=== PATIENT | male | born 1995 | race Caucasian/White ===

== ENCOUNTER 2020-09-11 12:21 | Inpatient (IN) ==
[2020-09-11] MEDS ORDERED: MoRPHine SULFATE 4 MG/ML 1 ML CARP\\VIAL IV STA (14:26)
[2020-09-11] MEDS ORDERED: SODIUM CHLORIDE 0.9% 1000ML 1,000 ML IV SCH (14:30)
[2020-09-11] MEDS: ONDANSETRON INJ 2 MG/ML 2 ML VIAL IV STA (15:37)
[2020-09-11 15:47] LABS: Basophils # (auto) 0.01 K/uL (0-0.2); Basophils % (auto) 0.1 %; Eosinophils # (auto) 0.06 K/uL (0-0.5); Eosinophils % (auto) 0.5 %; Hematocrit (blood only) 46.7 % (42-52); Hemoglobin 16.3 g/dL (14.0-18.0); Immature Granulocytes # (auto) 0.02 K/uL (0.00-0.02); Immature Granulocytes % (auto) 0.2 %; Lymphocytes # (auto) 0.78 K/uL (1.2-3.4); Lymphocytes % (auto) 6.1 %; Mean Corpuscular Hemoglobin 31.3 pg (25-34); Mean Corpuscular Hgb Conc 34.9 g/dL (32-36); Mean Corpuscular Volume 89.8 fL (80-100); Mean Platelet Volume 12.1 fL (7.4-10.4); Monocytes # (auto) 0.92 K/uL (0.11-0.59); Monocytes % (auto) 7.2 %; Neutrophils # (auto) 11.01 K/uL (1.4-6.5); Neutrophils % (auto) 85.9 %; Platelet Count 193 K/uL (130-400); RDW Coefficient of Variation 12.5 % (11.5-14.5); RDW Standard Deviation 41.1 fL (36.4-46.3)
[2020-09-11 16:06] LABS: Albumin Level 4.4 gm/dl (3.4-5.0); BUN Creatinine Ratio 10.5 (10-20); Calcium 9.1 mg/dl (8.5-10.1); Creatinine Clr Calc Pharmacy 151.5 ml/min; Est GFR (African American) 114.1 ml/min; Est GFR (Non-African American) 98.4 ml/min; Potassium 3.8 mmol/L (3.5-5.1)
[2020-09-11 16:09] LABS: Albumin Globulin Ratio 1.1 (0.9-2); Bilirubin,Total 1.1 mg/dl (0.2-1); Total Protein 8.4 gm/dl (6.4-8.2)
--- NOTE | 2020-09-11 16:21 | Emergency Department Note ---
History of Present Illness General Chief complaint: Abdominal Pain Stated complaint: ABDOMINAL PAIN Time Seen by Provider: 09/11/20 14:18 History of Present Illness Maximum Pain Intensity: 4 This is a 25-year-old male presenting to the emergency department for evaluation of left lower quadrant abdominal pain for the past 2 days. The patient states the discomfort is dull and increasing in discomfort. He rates the intensity of 5/10. There is no radiation of pain. He went to an urgent care clinic earlier this morning and was referred to the ER for further evaluation. He has not had fevers or chills. No chest pain, chest tightness, or shortness of breath. The patient is usually healthy and does not take medication on a regular basis. He has not had a history of abdominal surgery. Home Medications Medication Instructions Recorded Confirmed Type epinephrine 0.3 mg/0.3 mL 0.3 ml IM ONCE PRN 09/11/20 09/11/20 History injection, auto-injector Allergies Allergy/AdvReac Type Severity Reaction Status Date / Time peanut Allergy Severe Anaphylaxis Verified 09/11/20 14:56 Sulfa (Sulfonamide Allergy Intermediate Hives Verified 09/11/20 14:56 Antibiotics) Past Med/Surg History Medical History (Updated 09/11/20 @ 22:26 by Yoandy Lino PA-C) No chronic diseases present Surgical History (Updated 09/11/20 @ 16:26 by Yoandy Lino PA-C) No significant past surgical history Social History Feels Safe at Home: Yes Review of Systems A total of 10 systems reviewed and were otherwise negative Physical Exam Vital Signs Vital Signs - 24 hr 09/11/20 12:28 09/11/20 15:36 09/11/20 16:00 Temperature 37.0 C Temperature Source Temporal Artery Scan Pulse Rate 89 77 86 Pulse Rate from SpO2 Sensor 80 87 Respiratory Rate 18 17 Respiratory Effort / Characteristics Non-Labored Respiratory Depth Normal Respiratory Pattern Regular Blood Pressure 132/90 119/71 131/78 Blood Pressure Mean 104 87 95 Blood Pressure Position Sitting Pulse Oximetry 97 98 98 Oxygen Delivery Method Room Air Sepsis Recent Fever Within 48 Hours No Sepsis New/Unexplained Change in Mental Status No Sepsis Action Taken by Nursing No Action Required 09/11/20 16:30 09/11/20 17:35 09/11/20 18:00 Temperature Temperature Source Pulse Rate 79 94 H 78 Pulse Rate from SpO2 Sensor 80 78 Respiratory Rate 19 22 18 Respiratory Effort / Characteristics Respiratory Depth Respiratory Pattern Blood Pressure 126/63 146/72 H Blood Pressure Mean 84 96 Blood Pressure Position Pulse Oximetry 98 97 Oxygen Delivery Method Sepsis Recent Fever Within 48 Hours Sepsis New/Unexplained Change in Mental Status Sepsis Action Taken by Nursing 09/11/20 18:30 09/11/20 19:00 09/11/20 19:30 Temperature Temperature Source Pulse Rate 81 89 77 Pulse Rate from SpO2 Sensor 81 89 78 Respiratory Rate 20 23 21 Respiratory Effort / Characteristics Respiratory Depth Respiratory Pattern Blood Pressure 147/86 H 114/79 120/71 Blood Pressure Mean 106 90 87 Blood Pressure Position Pulse Oximetry 96 98 98 Oxygen Delivery Method Sepsis Recent Fever Within 48 Hours Sepsis New/Unexplained Change in Mental Status Sepsis Action Taken by Nursing 09/11/20 20:00 09/11/20 20:30 09/11/20 21:00 Temperature Temperature Source Pulse Rate 68 72 79 Pulse Rate from SpO2 Sensor 68 66 79 Respiratory Rate 21 22 22 Respiratory Effort / Characteristics Respiratory Depth Respiratory Pattern Blood Pressure 123/73 117/63 123/68 Blood Pressure Mean 89 81 86 Blood Pressure Position Pulse Oximetry 98 96 98 Oxygen Delivery Method Sepsis Recent Fever Within 48 Hours Sepsis New/Unexplained Change in Mental Status Sepsis Action Taken by Nursing 09/11/20 21:30 Temperature Temperature Source Pulse Rate 79 Pulse Rate from SpO2 Sensor 78 Respiratory Rate 22 Respiratory Effort / Characteristics Respiratory Depth Respiratory Pattern Blood Pressure 124/68 Blood Pressure Mean 86 Blood Pressure Position Pulse Oximetry 98 Oxygen Delivery Method Sepsis Recent Fever Within 48 Hours Sepsis New/Unexplained Change in Mental Status Sepsis Action Taken by Nursing VITALS: Vitals are noted on the nurse's note and reviewed by myself. Vital signs stable. GENERAL: Well-developed, well-nourished, white male, who is in no acute distress and resting comfortably. Patient is cooperative with the examination. HEAD: Normocephalic atraumatic. HEART: Regular rate and rhythm without murmurs gallops or rubs. LUNGS: Clear to auscultation bilaterally without wheezes, rales or rhonchi. No retractions or accessory muscle use. ABDOMEN: Positive normal bowel sounds x 4. Soft with left-sided tenderness. No rebound or guarding. MUSCULOSKELETAL: No muscle atrophy, erythema, or edema noted. Full range of motion in all extremities. NEURO: Patient was alert and oriented to person place and time. CN II through XII grossly intact. Course Administered Medications Discontinued Medications Sodium Chloride (Nss 1000ml) 1,000 mls @ 999 mls/hr IV .Q1H1M CHAD Stop: 09/11/20 15:30 Last Infusion: 09/11/20 16:44 Dose: 999 mls/hr Documented by: [id number] Admin: 09/11/20 15:37 Dose: 999 mls/hr Documented by: [id number] Piperacillin Sod/Tazobactam Sod (Zosyn) 4.5 gm in 120 mls @ 240 mls/hr IV NOW ONE Stop: 09/11/20 17:41 Last Infusion: 09/11/20 18:02 Dose: 240 mls/hr Documented by: [id number] Admin: 09/11/20 17:32 Dose: 240 mls/hr Documented by: [id number] Ioversol (Optiray 320 100ml) 91 ml IV ONCE ONE Stop: 09/11/20 16:47 Last Admin: 09/11/20 16:47 Dose: 91 ml Documented by: [id number] Morphine Sulfate (Morphine Sulfate 4 Mg/Ml 1 Ml Carp\Vial) 4 mg IV NOW STA Stop: 09/11/20 14:27 Last Admin: 09/11/20 15:38 Dose: 4 mg Documented by: [id number] Ondansetron HCl (Ondansetron Inj 2 Mg/Ml 2 Ml Vial) 4 mg IV NOW STA Stop: 09/11/20 14:27 Last Admin: 09/11/20 15:37 Dose: 4 mg Documented by: [id number] Medical Decision Making Differential Diagnosis Differential diagnosis: Etiologies such as biliary colic, cholecystitis, hepatitis, pancreatitis, cardia c disease, pancreatitis, gastritis, peptic ulcer disease, appendicitis, cystitis, diverticulitis, mesenteric ischemia, inflammatory bowel disease, ileus, bowel obstruction, testicular/adnexal torsion, aortic pathology, shingles, as well as others were considered Laboratory Data Result diagrams: 09/11/20 15:31 09/11/20 15:31 Lab Results 09/11/20 09/11/20 09/11/20 Range/Units 15:31 15:31 15:31 WBC 12.80 H (4.8-10.8) K/uL RBC 5.20 (4.7-6.1) M/uL Hgb 16.3 (14.0-18.0) g/dL Hct 46.7 (42-52) % MCV 89.8 (80-100) fL MCH 31.3 (25-34) pg MCHC 34.9 (32-36) g/dL RDW Std Deviation 41.1 (36.4-46.3) fL RDW Coeff of Itmo 12.5 (11.5-14.5) % Plt Count 193 (130-400) K/uL MPV 12.1 H (7.4-10.4) fL Immature Gran % (Auto) 0.2 % Neut % (Auto) 85.9 % Lymph % (Auto) 6.1 % [place] % (Auto) 7.2 % Eos % (Auto) 0.5 % Baso % (Auto) 0.1 % Neut # (Auto) 11.01 H (1.4-6.5) K/uL Lymph # (Auto) 0.78 L (1.2-3.4) K/uL [place] # (Auto) 0.92 H (0.11-0.59) K/uL Eos # (Auto) 0.06 (0-0.5) K/uL Baso # (Auto) 0.01 (0-0.2) K/uL Immature Gran # (Auto) 0.02 (0.00-0.02) K/uL Sodium 136 (136-145) mmol/L Potassium 3.8 (3.5-5.1) mmol/L Chloride 104 (98-107) mmol/L Carbon Dioxide 28 (21-32) mmol/L Anion Gap 4.0 (3-11) BUN 11 (7-18) mg/dl Creatinine 1.06 (0.6-1.4) mg/dl Est Cr Clr Drug Dosing 151.5 ml/min Est GFR ( Amer) 114.1 ml/min Est GFR (Non-Af Amer) 98.4 ml/min BUN/Creatinine Ratio 10.5 (10-20) Glucose 134 H (70-99) mg/dl Calcium 9.1 (8.5-10.1) mg/dl Total Bilirubin 1.1 H (0.2-1) mg/dl AST 14 L (15-37) U/L ALT 38 (12-78) U/L Alkaline Phosphatase 65 (45-117) U/L Total Protein 8.4 H (6.4-8.2) gm/dl Albumin 4.4 (3.4-5.0) gm/dl Globulin 4.0 (2.5-4.0) gm/dl Albumin/Globulin Ratio 1.1 (0.9-2) Lipase 56 L (73-393) U/L Urine Color Urine Appearance (Clear) Urine pH (4.5-7.5) Ur Specific [place] (1.000-1.030) Urine Protein (Negative) Urine Glucose (UA) (Negative) Urine Ketones (Negative) Urine Blood (Negative) Urine Nitrite (Negative) Urine Bilirubin (Negative) Urine Urobilinogen (Negative) Ur Leukocyte Esterase (Negative) Urine WBC (Auto) (0-5) /hpf Urine RBC (Auto) (0-4) /hpf U Hyaline Cast (Auto) (0-5) /lpf U Epithel Cells (Auto) (0-5) /lpf Urine Bacteria (Auto) (Negative) COVID-19 Eval Order SARS-CoV-2 (PCR) (Negative) Monoscreen Negative (Negative) 09/11/20 09/11/20 09/11/20 Range/Units 16:40 17:42 17:42 WBC (4.8-10.8) K/uL RBC (4.7-6.1) M/uL Hgb (14.0-18.0) g/dL Hct (42-52) % MCV (80-100) fL MCH (25-34) pg MCHC (32-36) g/dL RDW Std Deviation (36.4-46.3) fL RDW Coeff of Tim[place] (11.5-14.5) % Plt Count (130-400) K/uL MPV (7.4-10.4) fL Immature Gran % (Auto) % Neut % (Auto) % Lymph % (Auto) % [place] % (Auto) % Eos % (Auto) % Baso % (Auto) % Neut # (Auto) (1.4-6.5) K/uL Lymph # (Auto) (1.2-3.4) K/uL [place] # (Auto) (0.11-0.59) K/uL Eos # (Auto) (0-0.5) K/uL Baso # (Auto) (0-0.2) K/uL Immature Gran # (Auto) (0.00-0.02) K/uL Sodium (136-145) mmol/L Potassium (3.5-5.1) mmol/L Chloride (98-107) mmol/L Carbon Dioxide (21-32) mmol/L Anion Gap (3-11) BUN (7-18) mg/dl Creatinine (0.6-1.4) mg/dl Est Cr Clr Drug Dosing ml/min Est GFR ( Amer) ml/min Est GFR (Non-Af Amer) ml/min BUN/Creatinine Ratio (10-20) Glucose (70-99) mg/dl Calcium (8.5-10.1) mg/dl Total Bilirubin (0.2-1) mg/dl AST (15-37) U/L ALT (12-78) U/L Alkaline Phosphatase (45-117) U/L Total Protein (6.4-8.2) gm/dl Albumin (3.4-5.0) gm/dl Globulin (2.5-4.0) gm/dl Albumin/Globulin Ratio (0.9-2) Lipase (73-393) U/L Urine Color Yellow Urine Appearance Clear (Clear) Urine pH 6.0 (4.5-7.5) Ur Specific [place] 1.017 (1.000-1.030) Urine Protein Negative (Negative) Urine Glucose (UA) Negative (Negative) Urine Ketones Trace H (Negative) Urine Blood Trace H (Negative) Urine Nitrite Negative (Negative) Urine Bilirubin Negative (Negative) Urine Urobilinogen Negative (Negative) Ur Leukocyte Esterase Negative (Negative) Urine WBC (Auto) 1-5 (0-5) /hpf Urine RBC (Auto) 0-4 (0-4) /hpf U Hyaline Cast (Auto) 1-5 (0-5) /lpf U Epithel Cells (Auto) 0-5 (0-5) /lpf Urine Bacteria (Auto) Negative (Negative) COVID-19 Eval Order Covid19 at [facility] SARS-CoV-2 (PCR) NEGATIVE (Negative) Monoscreen (Negative) Imaging Data Radiologist's Impression: Abdomen/Pelvis CT 09/11/20 14:26 CT OF THE ABDOMEN AND PELVIS WITH CONTRAST CLINICAL HISTORY: LLQ abd pain COMPARISON STUDY: Left lower quadrant abdominal pain. TECHNIQUE: Following IV administration of 91 mL of Optiray, axial images of the abdomen and pelvis were obtained from the lung bases to the proximal femurs. Images were reviewed in the axial, sagittal, and coronal planes. IV contrast was administered without complication. Automated exposure control was utilized for the study. A dose lowering technique was utilized adhering to the principles of ALARA. Oral contrast was administered. CT DOSE: 721.76 mGy.cm FINDINGS: Lung bases are unremarkable. No pneumatosis or portal venous gas is present. The liver, spleen, adrenal glands, kidneys and pancreas are unremarkable. There is no biliary or pancreatic ductal dilatation. There is no hydronephrosis. Colonic diverticulosis is noted. Note is made of an inflamed diverticulum of the posterior wall of the mid descending colon. There are multiple adjacent locules of extraluminal gas. Moderate adjacent fluid is noted. There is no rim-enhancing fluid collection to suggest an abscess. The appendix is normal. There is no evidence for a bowel obstruction. There is no lymphadenopathy. Major vasculature is patent. IMPRESSION: Findings consistent with acute diverticulitis of the mid descending colon with contained perforation. Small amount of extraluminal gas with moderate pericolonic fluid. No abscess. ACT 112: Negative or not required by law. Electronically signed by: Reynaldo Nunez M.D. 09/11/2020 5:01 PM [facility] Narrative Physical exam and history were performed. Nursing notes, EMR, and Medication List were personally reviewed. Patient appears to have left-sided abdominal pain bringing him to the emergency department. He does have reproducible tenderness on exam. IV access was established and labs were obtained. He was hydrated with normal saline and given IV morphine and IV Zofran for comfort. He was taken to CT scan after IV and oral prep. Patient's blood work is as above and was reviewed. He does have a slightly elevated white blood cell count of just shy of 13,000. He does not have a significant anemia or gross electrolyte imbalance. Lipase and transaminases are not diagnostic. Urine is without significant findings. CT scan is as above and was reviewed by myself and radiology. CT scan is concerning for acute diverticulitis with likely microperforation. He does not appear to have abscess. The case was discussed with my attending physician, and then with the on-call general surgeon. The hospitalist team was consulted and did agree to evaluate the patient here in the ER. The patient was empirically started on Zosyn, and his questions were answered. Please see the hospitalist and surgical team dictations for further patient course, plan, and disposition. The chart was completed utilizing [employer] Speech Voice Recognition Software. Grammatical errors, random word insertions, pronoun errors, and incomplete sente nces are an occasional consequence of this system due to software limitations, ambient noise, and hardware issues. Any formal questions or concerns about the content, text, or information contained within the body of this dictation should be directly addressed to the provider for clarification. . Impression & Plan Diverticulitis large intestine, Left sided abdominal pain Discharge Plan Visit Data Chief Complaint: Abdominal Pain Stated Complaint: ABDOMINAL PAIN ED Provider: Feliciano Oliva ED Midlevel Provider: Yoandy Lino Discharge Problem: Diverticulitis large intestine, Left sided abdominal pain Discharge Instructions Interventions: ED Discharge Assessment Last Done: 09/11/20 22:12 Forms Stand Alone Forms: [employer] Prescriptions Prescriptions: No Action epinephrine 0.3 mg/0.3 mL auto-injector 0.3 ml IM ONCE PRN (Reason: Allergic Reaction) RF: 0 Referrals Referrals: [facility] [Primary Care Provider] -
[2020-09-11] MEDS ORDERED: OPTIRAY 320 100ml IV ONE (16:46)
--- NOTE | 2020-09-11 17:02 | CT Scan Report ---
CT OF THE ABDOMEN AND PELVIS WITH CONTRAST CLINICAL HISTORY: LLQ abd pain COMPARISON STUDY: Left lower quadrant abdominal pain. TECHNIQUE: Following IV administration of 91 mL of Optiray, axial images of the abdomen and pelvis we re obtained from the lung bases to the proximal femurs. Images were reviewed in the axial, sagittal, and coronal planes. IV contrast was administered without complication. Automated exposure control wa s utilized for the study. A dose lowering technique was utilized adhering to the principles of ALARA . Oral contrast was administered. CT DOSE: 721.76 mGy.cm FINDINGS: Lung bases are unremarkable. No pneumatosis or portal venous gas is present. The liver, spl een, adrenal glands, kidneys and pancreas are unremarkable. There is no biliary or pancreatic ductal dilatation. There is no hydronephrosis. Colonic diverticulosis is noted. Note is made of an inflamed diverticulum of the posterior wall of the mid descending colon. There are multiple adjacent locules o f extraluminal gas. Moderate adjacent fluid is noted. There is no rim-enhancing fluid collection to s uggest an abscess. The appendix is normal. There is no evidence for a bowel obstruction. There is no lymphadenopathy. Major vasculature is patent. IMPRESSION: Findings consistent with acute diverticulitis of the mid descending colon with contained perforation. Small amount of extraluminal gas with moderate pericolonic fluid. No abscess. ACT 112: Negative or not required by law. Electronically signed by: Reynaldo Nunez M.D. 09/11/2020 5:01 PM
[2020-09-11 17:09] LABS: Appearance Urine Clear (Clear); Bacteria Urine Automated Negative (Negative); Bilirubin Urine Negative (Negative); Blood Urine Trace (Negative); Color Urine Yellow; Epithelial Cell Urine Auto 0-5 /lpf (0-5); Glucose Urine UA Negative (Negative); Ketones Urine Trace (Negative); Leukocyte Esterase Urine Negative (Negative); Nitrite Urine Negative (Negative); Protein Urine Negative (Negative); RBC Urine Automated 0-4 /hpf (0-4); Specific Gravity Urine 1.017 (1.000-1.030); Urobilinogen Urine Negative (Negative)
[2020-09-11] MEDS ORDERED: PIPERACILLIN/TAZOBACTAM 4.5 GM/120 ML BAG IV ONE (17:12)
[2020-09-11] MEDS ORDERED: PIPERACILL/TAZOBAC CONSULT ACTIVE PRN ×2 (17:12→22:37)
--- NOTE | 2020-09-11 18:13 | Surgery Consultation ---
Date of Consultation September 11, 2020 Assessment & Plan (1) Diverticulitis large intestine: pt is a 25 year-old male who presents to ER with 2 days history LLQ pain, IMP: acute diverticulitis, possible micro perforation, Plan, no surgical indication now, recommend - medicine team admit pt to hospital , conservative treatment first, NPO, IV fluid, iv antibiotic, repeat labs in morning, will F/U, may need surgery if symptom is worse, pt understood, I answered all questions, History of Present Illness Reason for Consultation: abdominal pain Requesting Physician: Feliciano Oliva MD History of Present Illness Chief complaint: Abdominal Pain Stated complaint: ABDOMINAL PAIN Time Seen by Provider: 09/11/20 14:18 History of Present Illness Maximum Pain Intensity: 4 This is a 25-year-old male presenting to the emergency department for evaluation of left lower quadrant abdominal pain for the past 2 days. The patient states the discomfort is dull and increasing in discomfort. He rates the intensity of 5/10. There is no radiation of pain. He went to an urgent care clinic earlier this morning and was referred to the ER for further evaluation. He has not had fevers or chills. No chest pain, chest tightness, or shortness of breath. The patient is usually healthy and does not take medication on a regular basis. He has not had a history of abdominal surgery. I ( Madelyn Vasquez MD ) got a call for consult diverticulitis, I reviewed pts' H/P, labs, CT scan with pt, Home Medications Medication Instructions Recorded Confirmed Type epinephrine 0.3 mg/0.3 mL 0.3 ml IM ONCE PRN 09/11/20 09/11/20 History injection, auto-injector Allergies Allergy/AdvReac Type Severity Reaction Status Date / Time peanut Allergy Severe Anaphylaxis Verified 09/11/20 14:56 Sulfa (Sulfonamide Allergy Intermediate Hives Verified 09/11/20 14:56 Antibiotics) Past Med/Surg History Medical History (Updated 09/11/20 @ 16:26 by Yoandy Lino PA-C) No chronic diseases present Surgical History (Updated 09/11/20 @ 16:26 by Yoandy Lino PA-C) No significant past surgical history Social History Feels Safe at Home: Yes Review of Systems A total of 10 systems reviewed and were otherwise negative Allergies Allergy/AdvReac Type Severity Reaction Status Date / Time peanut Allergy Severe Anaphylaxis Verified 09/11/20 14:56 Sulfa (Sulfonamide Allergy Intermediate Hives Verified 09/11/20 14:56 Antibiotics) Home Medications Medication Instructions Recorded Confirmed Type epinephrine 0.3 mg/0.3 mL 0.3 ml IM ONCE PRN 09/11/20 09/11/20 History injection, auto-injector Patient History Medical History (Updated 09/11/20 @ 18:18 by Madelyn Vasquez MD) No chronic diseases present Surgical History (Updated 09/11/20 @ 16:26 by CECILIA TorresC) No significant past surgical history Social History Feels Safe at Home: Yes Review of Systems Eyes: as per Subjective / HPI Respiratory: as per Subjective / HPI Cardiovascular: as per Subjective / HPI Gastrointestinal: as per Subjective / HPI Genitourinary: + as per Subjective / HPI Musculoskeletal: as per Subjective / HPI Neurologic: as per Subjective / HPI Psychiatric: as per Subjective / HPI Endocrine: as per Subjective / HPI Physical Exam Constitutional: WD/WN, vitals as above Neck: trachea midline, no thyromegaly Respiratory: normal respiratory effort, lungs clear to auscultation Cardiovascular: RRR, no murmur, no edema Gastrointestinal (Abdomen): soft, mild tenderness at LLQ, no rebound pain, no distend, BS + Musculoskeletal: no cyanosis or clubbing, extremities motor strength 5/5 Neurologic: patellar DTR's 2+ bilat, sensation intact Psychiatric: A+Ox3, euthymic affect Results & Data ([facility]) Vital Signs (Past 12 Hours) Vital Signs Temp Pulse Resp BP Pulse Ox 09/11/20 17:35 94 H 22 09/11/20 16:30 79 19 126/63 98 09/11/20 16:00 86 131/78 98 09/11/20 15:36 77 17 119/71 98 09/11/20 12:28 37.0 C 89 18 132/90 97 Laboratory Results Abnormal lab results 09/11/20 09/11/20 09/11/20 Range/Units 15:31 15:31 16:40 WBC 12.80 H (4.8-10.8) K/uL MPV 12.1 H (7.4-10.4) fL Neut # (Auto) 11.01 H (1.4-6.5) K/uL Lymph # (Auto) 0.78 L (1.2-3.4) K/uL [place] # (Auto) 0.92 H (0.11-0.59) K/uL Glucose 134 H (70-99) mg/dl Total Bilirubin 1.1 H (0.2-1) mg/dl AST 14 L (15-37) U/L Total Protein 8.4 H (6.4-8.2) gm/dl Lipase 56 L (73-393) U/L Urine Ketones Trace H (Negative) Urine Blood Trace H (Negative) Diagnostic Findings CT OF THE ABDOMEN AND PELVIS WITH CONTRAST CLINICAL HISTORY: LLQ abd pain COMPARISON STUDY: Left lower quadrant abdominal pain. TECHNIQUE: Following IV administration of 91 mL of Optiray, axial images of the abdomen and pelvis were obtained from the lung bases to the proximal femurs. Images were reviewed in the axial, sagittal, and coronal planes. IV contrast was administered without complication. Automated exposure control was utilized for the study. A dose lowering technique was utilized adhering to the principles of ALARA. Oral contrast was administered. CT DOSE: 721.76 mGy.cm FINDINGS: Lung bases are unremarkable. No pneumatosis or portal venous gas is present. The liver, spleen, adrenal glands, kidneys and pancreas are unremarkable. There is no biliary or pancreatic ductal dilatation. There is no hydronephrosis. Colonic diverticulosis is noted. Note is made of an inflamed diverticulum of the posterior wall of the mid descending colon. There are multiple adjacent locules of extraluminal gas. Moderate adjacent fluid is noted. There is no rim-enhancing fluid collection to suggest an abscess. The appendix is normal. There is no evidence for a bowel obstruction. There is no lymphadenopathy. Major vasculature is patent. IMPRESSION: Findings consistent with acute diverticulitis of the mid descending colon with contained perforation. Small amount of extraluminal gas with moderate pericolonic fluid. No abscess.
--- NOTE | 2020-09-11 19:36 | History & Physical Report ---
Date of Service September 11, 2020 Assessment & Plan (1) Diverticulitis large intestine: Plan: Jose is an otherwise healthy 25 yo male who presented for left lower quadrant pain, found to have acute diverticulitis with a contained microperforation. - patient without any apparent risk factors - IV tylenol and IV morphine ordered prn for analgesia - NPO for bowel rest - maintenance IVF for hydration - continue with Zosyn 3.375g q6h. Plan to transition to cipro + flagyl oral regimen upon discharge, recommend total of 10-14 day antimicrobial course - general surgery consult placed given microperforation - consider GI consult vs. outpatient referral as patient may need a colonoscopy after acute flare resolves (2) Leukocytosis: Plan: - WBC 12.8 with neutrophil predom - likely secondary to acute diverticulitis as above - continue with IV zosyn - trend CBC DVT ppx: low risk, ambulatory. SCDs Diet: NPO, advance as tolerated. * patient with peanut allergy Dispo: Med/Surg Code: Full, I discussed with patient History of Present Illness Primary Care Provider: [facility] Jose is a 25 yo otherwise healthy male who was referred to the [facility] ED by a local [facility], where he presented earlier today with left abdominal pain. The pain began Thursday evening - it was mostly localized to the left lower quadrant. He denied any associated fever/chills, cough, runny nose, SOB, nausea/vomiting or diarrhea. He states his appetite has been low. He has passed normal BMs. The discomfort has slightly progressed since onset, which ultimatley prompted him to seek medical attention today. He denies any personal or family history of gastrointestinal problems. Social Hx: He smokes marijuana occasionally, social consumption of etoh (not regular). In the ED, he was afebrile with normal HR and BP. His WBC was elevated to 12.8 with neutrophil predominance. CMP was normal. UA was benign. Monospot negative. COVID [address] scan of the abdomen/pelvis showed evidence of acute diverticulitis of the mid descending colon with contained perforation. No abscess formation. He was given Morphine 4mg, zofran 4mg, a dose of Zosyn and 1 liter of NSS. Allergies Allergy/AdvReac Type Severity Reaction Status Date / Time peanut Allergy Severe Anaphylaxis Verified 09/11/20 14:56 Sulfa (Sulfonamide Allergy Intermediate Hives Verified 09/11/20 14:56 Antibiotics) Home Medications Medication Instructions Recorded Confirmed Type epinephrine 0.3 mg/0.3 mL 0.3 ml IM ONCE PRN 09/11/20 09/11/20 History injection, auto-injector Past Med/Surg History Medical History (Updated 09/11/20 @ 22:26 by Yoandy Lino PA-C) No chronic diseases present Surgical History (Updated 09/11/20 @ 16:26 by Yoandy Lino PA-C) No significant past surgical history Social History Smoking Status: Never smoker Second Hand Exposure: No; Do You Dip or Chew Tobacco: No; Hx Alcohol Use: Yes Hx Substance Use: Yes Preferred Language: Tajik Communication Ability: Effective Border Measurer And Cutter Required: No Beliefs That Will Affect Care: None Current Living Situation: Alone Current Living Situation Comment: Roommates gone for summer. One is returning tomorrow. Other Information That Helps Us Care for You: No Feels Safe at Home: Yes Safety Concerns: Feels Safe At This Time Assistive Devices: None Physical Exam Constitutional: WD/WN, vitals as above cooperative; no acute distress Eyes: + anicteric sclerae ENMT: external ear and nose normal, oropharynx normal Neck: trachea midline Respiratory: normal respiratory effort, lungs clear to auscultation no cough Cardiovascular: RRR, no murmur, no edema Heart Sounds: normal S1 and normal S2 Extremities: no pedal edema Gastrointestinal (Abdomen): Inspection/Auscultation: abdomen normal to i nspection and normal bowel sounds; abdomen not distended Percussion/Palpation: + abdomen tender (LLQ, LUQ, suprapubic area) and abdomen soft; no guarding and no hepatosplenomegaly Musculoskeletal: Head/Neck/Chest: normocephalic and head atraumatic Skin: no rashes, warm and dry Psychiatric: A+Ox3, euthymic affect Results & Data Results & Data ([facility]) Vital Signs (Past 12 Hours) Vital Signs Temp Pulse Resp BP Pulse Ox 09/11/20 18:30 81 20 147/86 H 96 09/11/20 18:00 78 18 146/72 H 97 09/11/20 17:35 94 H 22 09/11/20 16:30 79 19 126/63 98 09/11/20 16:00 86 131/78 98 09/11/20 15:36 77 17 119/71 98 09/11/20 12:28 37.0 C 89 18 132/90 97 Supervising Physician Co-Signing Physician Notes Discussed with vice president medical affairs, agree with her note above. This is a 25-year-old past medical history presented with worsening abdominal pain. Initially presented to urgent care and was directed to the emergency room for further evaluation. CT of the abdomen and pelvis revealed acute diverticulitis of the mid descending colon with a small self-contained perforation. Plan to admit for further treatment. On antibiotics as noted above. N.p.o. with IV fluids as ordered. General surgery consultation although patient does not require immediate surgical intervention at this time. Patient will ultimately require colonoscopy once acute issues have resolved. Resident Activity Tracking Resident Involvement: Resident Care Provided Care Provided: Adult Hospital Medicine
[2020-09-11] MEDS ORDERED: ONDANSETRON INJ 2 MG/ML 2 ML VIAL IV PRN (22:37)
[2020-09-11] MEDS ORDERED: PIPERACILLIN/TAZOBACTAM 3.375 GM in DEXTROSE 5% 100 ML IV SCH (22:37)
[2020-09-11] MEDS ORDERED: ACETAMINOPHEN 1000 MG/100 ML IV IV ONE (22:40)
[2020-09-11] MEDS ORDERED: EPINEPHrine INJ 1 MG/ML AMP IM PRN (22:46)
[2020-09-11] MEDS: SODIUM CHLORIDE 0.9% 1000ML 1,000 ML IV SCH (23:00)
[2020-09-11] MEDS: PIPERACILLIN/TAZOBACTAM 3.375 GM in DEXTROSE 5% 100 ML IV SCH (23:05)
[2020-09-12] MEDS: MoRPHine SULFATE 2 MG/ML CARP IV PRN ×3 (05:56→13:32)
[2020-09-12] MEDS: SODIUM CHLORIDE 0.9% 1000ML 1,000 ML IV SCH ×2 (05:56→12:43)
[2020-09-12 06:46] LABS: Basophils # (auto) 0.02 K/uL (0-0.2); Basophils % (auto) 0.1 %; Eosinophils # (auto) 0.07 K/uL (0-0.5); Eosinophils % (auto) 0.5 %; Hemoglobin 15.2 g/dL (14.0-18.0); Immature Granulocytes # (auto) 0.03 K/uL (0.00-0.02); Immature Granulocytes % (auto) 0.2 %; Lymphocytes # (auto) 1.06 K/uL (1.2-3.4); Lymphocytes % (auto) 7.6 %; Mean Corpuscular Hemoglobin 31.1 pg (25-34); Mean Corpuscular Hgb Conc 34.5 g/dL (32-36); Mean Platelet Volume 11.9 fL (7.4-10.4); Monocytes # (auto) 1.18 K/uL (0.11-0.59); Monocytes % (auto) 8.5 %; Neutrophils # (auto) 11.51 K/uL (1.4-6.5); Neutrophils % (auto) 83.1 %; Platelet Count 199 K/uL (130-400); RDW Coefficient of Variation 12.5 % (11.5-14.5); RDW Standard Deviation 41.3 fL (36.4-46.3); Red Blood Count 4.89 M/uL (4.7-6.1); White Blood Count 13.87 K/uL (4.8-10.8)
[2020-09-12] MEDS: PIPERACILLIN/TAZOBACTAM 3.375 GM in DEXTROSE 5% 100 ML IV SCH (08:24)
--- NOTE | 2020-09-12 09:34 | Medical Student Progress Note ---
Date of Service September 12, 2020 Assessment & Plan (1) Diverticulitis large intestine: Plan: Jose is an otherwise healthy 25 yo male who presented for left lower quadrant pain, found to have acute diverticulitis in the mid-descending colon with a contained microperforation. He is hemodynamically stable and his pain is moderately controlled. - patient without any apparent risk factors - IV tylenol and IV morphine ordered prn for analgesia - NPO for bowel rest - maintenance IVF for hydration - continue with Zosyn 3.375g q6h. Plan to transition to cipro + flagyl oral regimen upon discharge, recommend total of 10-14 day antimicrobial course - General Surgery consult appreciated: no need for surgery unless he worsens, will follow-up with patient, agreed with the recommendations above - considering GI consult vs. outpatient referral as patient may need a co lonoscopy after acute flare resolves (2) Leukocytosis: Plan: - WBC uptrending from 12.8 at admission to 13.87 currently, with neutrophil predom - likely secondary to acute diverticulitis as above - continue with IV zosyn - trend CBC DVT ppx: low risk, ambulatory. SCDs Diet: NPO, advance as tolerated. * patient with peanut allergy Dispo: Med/Surg Code: Full Admission and Anticipated Discharge Date Admission Date: September 11, 2020 Supervising Attestation I personally examined the patient and verified all cai points of history and exam, discussed case, and agree with decision making with Rodney Smiley [id number] Still having some pain but feeling better. No particular hungry but is fairly thirsty. Pain seems to be a bit improved. Vitals noted, in general he is awake and alert pleasant no distress. HEENT normocephalic atraumatic mucous membranes moist. Abdomen soft left lower quadrant tenderness no guarding rebound or rigidity. Diverticulitis with microperforationclinically seems to be improving on IV antibiotics. Continue coverage for enteric gram-negative's and anaerobes. Trial of clear liquid diet. Otherwise as above. Subjective Overall, patient is lying comfortably in bed. He is not in any acute distress currently, but says he just does not feel well. Mr. Hollis did not sleep well last evening and said he continues to have pain that's relatively unchanged since admission, rating it a 4/10 and stating, "I don't feel worse, but I don't feel better either." No nausea or vomiting, but endorses some left lower quadrant pain. He has not had a bowel movement since Thursday and has not eaten since then. There is mention of being thirsty, but doesn't want to push things too quickly by trying to have solid food. Review of Systems Review of Systems: All systems reviewed & are unremarkable except as noted in Subjective Eyes: as per Subjective / HPI Respiratory: as per Subjective / HPI Cardiovascular: as per Subjective / HPI Gastrointestinal: as per Subjective / HPI Genitourinary: + as per Subjective / HPI Musculoskeletal: as per Subjective / HPI Neurologic: as per Subjective / HPI Psychiatric: as per Subjective / HPI Endocrine: as per Subjective / HPI Physical Exam Constitutional: WD/WN, vitals as above cooperative; no acute distress Eyes: + anicteric sclerae Neck: trachea midline, no thyromegaly trachea midline Respiratory: normal respiratory effort, lungs clear to auscultation no cough Cardiovascular: RRR, no murmur, no edema Heart Sounds: normal S1 and normal S2 Gastrointestinal (Abdomen): Inspection/Auscultation: abdomen normal to inspection and normal bowel sounds; abdomen not distended Percussion/Palpation: + abdomen tender (LLQ) and abdomen soft; no guarding Musculoskeletal: Head/Neck/Chest: normocephalic and head atraumatic Skin: no rashes, warm and dry Results & Data ([facility]) Vital Signs (Past 12 Hours) Vital Signs Temp Pulse Pulse Pulse Resp BP BP 09/12/20 07:10 36.8 C 91 H 16 101/65 09/11/20 22:10 36.9 C 97 H 15 129/81 09/11/20 22:00 82 24 123/69 Pulse Ox 09/12/20 07:10 97 09/11/20 22:10 99 09/11/20 22:00 98 Laboratory Results Laboratory Results WBC 13.87 K/uL (4.8-10.8) H 09/12/20 06:09 RBC 4.89 M/uL (4.7-6.1) 09/12/20 06:09 Hgb 15.2 g/dL (14.0-18.0) 09/12/20 06:09 Hct 44.0 % (42-52) 09/12/20 06:09 MCV 90.0 fL (80-100) 09/12/20 06:09 MCH 31.1 pg (25-34) 09/12/20 06:09 MCHC 34.5 g/dL (32-36) 09/12/20 06:09 RDW Std Deviation 41.3 fL (36.4-46.3) 09/12/20 06:09 RDW Coeff of Timo 12.5 % (11.5-14.5) 09/12/20 06:09 Plt Count 199 K/uL (130-400) 09/12/20 06:09 MPV 11.9 fL (7.4-10.4) H 09/12/20 06:09 Immature Gran % (Auto) 0.2 % 09/12/20 06:09 Neut % (Auto) 83.1 % 09/12/20 06:09 Lymph % (Auto) 7.6 % 09/12/20 06:09 [place] % (Auto) 8.5 % 09/12/20 06:09 Eos % (Auto) 0.5 % 09/12/20 06:09 Baso % (Auto) 0.1 % 09/12/20 06:09 Neut # (Auto) 11.51 K/uL (1.4-6.5) H 09/12/20 06:09 Lymph # (Auto) 1.06 K/uL (1.2-3.4) L 09/12/20 06:09 [place] # (Auto) 1.18 K/uL (0.11-0.59) H 09/12/20 06:09 Eos # (Auto) 0.07 K/uL (0-0.5) 09/12/20 06:09 Baso # (Auto) 0.02 K/uL (0-0.2) 09/12/20 06:09 Immature Gran # (Auto) 0.03 K/uL (0.00-0.02) H 09/12/20 06:09 Sodium 136 mmol/L (136-145) 09/11/20 15:31 Potassium 3.8 mmol/L (3.5-5.1) 09/11/20 15:31 Chloride 104 mmol/L (98-107) 09/11/20 15:31 Carbon Dioxide 28 mmol/L (21-32) 09/11/20 15:31 Anion Gap 4.0 (3-11) 09/11/20 15:31 BUN 11 mg/dl (7-18) 09/11/20 15:31 Creatinine 1.06 mg/dl (0.6-1.4) 09/11/20 15:31 Est Cr Clr Drug Dosing 151.5 ml/min 09/11/20 15:31 Est GFR ( Amer) 114.1 ml/min 09/11/20 15:31 Est GFR (Non-Af Amer) 98.4 ml/min 09/11/20 15:31 BUN/Creatinine Ratio 10.5 (10-20) 09/11/20 15:31 Glucose 134 mg/dl (70-99) H 09/11/20 15:31 Calcium 9.1 mg/dl (8.5-10.1) 09/11/20 15:31 Total Bilirubin 1.1 mg/dl (0.2-1) H 09/11/20 15:31 AST 14 U/L (15-37) L 09/11/20 15:31 ALT 38 U/L (12-78) 09/11/20 15:31 Alkaline Phosphatase 65 U/L (45-117) 09/11/20 15:31 Total Protein 8.4 gm/dl (6.4-8.2) H 09/11/20 15:31 Albumin 4.4 gm/dl (3.4-5.0) 09/11/20 15:31 Globulin 4.0 gm/dl (2.5-4.0) 09/11/20 15:31 Albumin/Globulin Ratio 1.1 (0.9-2) 09/11/20 15:31 Lipase 56 U/L (73-393) L 09/11/20 15:31 Urine Color Yellow 09/11/20 16:40 Urine Appearance Clear (Clear) 09/11/20 16:40 Urine pH 6.0 (4.5-7.5) 09/11/20 16:40 Ur Specific Abbott 1.017 (1.000-1.030) 09/11/20 16:40 Urine Protein Negative (Negative) 09/11/20 16:40 Urine Glucose (UA) Negative (Negative) 09/11/20 16:40 Urine Ketones Trace (Negative) H 09/11/20 16:40 Urine Blood Trace (Negative) H 09/11/20 16:40 Urine Nitrite Negative (Negative) 09/11/20 16:40 Urine Bilirubin Negative (Negative) 09/11/20 16:40 Urine Urobilinogen Negative (Negative) 09/11/20 16:40 Ur Leukocyte Esterase Negative (Negative) 09/11/20 16:40 Urine WBC (Auto) 1-5 /hpf (0-5) 09/11/20 16:40 Urine RBC (Auto) 0-4 /hpf (0-4) 09/11/20 16:40 U Hyaline Cast (Auto) 1-5 /lpf (0-5) 09/11/20 16:40 U Epithel Cells (Auto) 0-5 /lpf (0-5) 09/11/20 16:40 Urine Bacteria (Auto) Negative (Negative) 09/11/20 16:40 COVID-19 Eval Order Covid19 at [facility] 09/11/20 17:42 SARS-CoV-2 (PCR) NEGATIVE (Negative) 09/11/20 17:42 Monoscreen Negative (Negative) 09/11/20 15:31 Impressions Abdomen/Pelvis CT 09/11/20 14:26 CT OF THE ABDOMEN AND PELVIS WITH CONTRAST CLINICAL HISTORY: LLQ abd pain COMPARISON STUDY: Left lower quadrant abdominal pain. TECHNIQUE: Following IV administration of 91 mL of Optiray, axial images of the abdomen and pelvis were obtained from the lung bases to the proximal femurs. Images were reviewed in the axial, sagittal, and coronal planes. IV contrast was administered without complication. Automated exposure control was utilized for the study. A dose lowering technique was utilized adhering to the principles of ALARA. Oral contrast was administered. CT DOSE: 721.76 mGy.cm FINDINGS: Lung bases are unremarkable. No pneumatosis or portal venous gas is present. The liver, spleen, adrenal glands, kidneys and pancreas are unremarkable. There is no biliary or pancreatic ductal dilatation. There is no hydronephrosis. Colonic diverticulosis is noted. Note is made of an inflamed diverticulum of the posterior wall of the mid descending colon. There are multiple adjacent locules of extraluminal gas. Moderate adjacent fluid is noted. There is no rim-enhancing fluid collection to suggest an abscess. The appendix is normal. There is no evidence for a bowel obstruction. There is no lymphadenopathy. Major vasculature is patent. IMPRESSION: Findings consistent with acute diverticulitis of the mid descending colon with contained perforation. Small amount of extraluminal gas with moderate pericolonic fluid. No abscess. ACT 112: Negative or not required by law. Electronically signed by: Reynaldo Nunez M.D. 09/11/2020 5:01 PM Medications Administered Current Inpatient Medications Epinephrine HCl (Epinephrine Inj 1 Mg/Ml Amp) 0.3 mg IM ONCE PRN PRN Reason: Allergic Reaction Stop: 10/11/20 22:45 Sodium Chloride (Nss 1000ml) 1,000 mls @ 145 mls/hr IV .Q6H54M CHAD Stop: 09/12/20 19:18 Last Admin: 09/12/20 05:56 Dose: 145 mls/hr Documented by: Acetaminophen (Ofirmev) 1,000 mg in 100 mls @ 400 mls/hr IV Q8H PRN PRN Reason: Pain Stop: 09/14/20 22:36 Piperacillin Sod/Tazobactam (Sod 3.375 gm/ Dextrose) 115 mls @ 28.75 mls/hr IV Q8H [facility]; Protocol Stop: 09/13/20 22:59 Last Admin: 09/12/20 08:24 Dose: 28.8 mls/hr Documented by: Miscellaneous Information (Piperacill/Tazobac Consult Active) 1 ea N/A UD PRN PRN Reason: Consult Stop: 10/11/20 22:36 Morphine Sulfate (Morphine Sulfate 2 Mg/Ml Carp) 1 mg IV Q30M PRN PRN Reason: Chest Pain Stop: 09/25/20 22:36 Last Admin: 09/12/20 09:05 Dose: 1 mg Documented by: Ondansetron HCl (Ondansetron Inj 2 Mg/Ml 2 Ml Vial) 4 mg IV Q6H PRN PRN Reason: Nausea Stop: 10/11/20 22:36
--- NOTE | 2020-09-12 12:29 | Surgery Progress Note ---
Date of Service September 12, 2020 Assessment & Plan (1) Diverticulitis large intestine: Plan: 25 year-old male who presented to ER with 2 days history LLQ pain, CT scan showing diverticulitis of distal sigmoid colon with contained perforation and no abscess Plan: No acute surgical intervention required at this time continue conservative measures. As his pain is still present with no improvement would recommend continue NPO for bowel rest. Continue IV abx and IV fluids Continue pain management as needed Continue IV Zofan prn nausea encouraged ambulating hallway Will need colonoscopy in 6-8 weeks once acute inflammation resolved total course of 10-14 days of antibiotics given microperforation Dr. Vasquez has seen patient and agrees with above. Admission and Anticipated Discharge Date Admission Date: September 11, 2020 Subjective states his pain is about the same 4/10 in the left lower abdomen. not worse not better has not been up moving around urinating without difficulty no bowel movement, small amount of gas no fever, chills, sweats last night Physical Exam Constitutional: WD/WN, vitals as above no acute distress and not ill appearing Respiratory: normal respiratory effort; no respiratory distress and no labored breathing Gastrointestinal (Abdomen): Inspection/Auscultation: abdomen normal to inspection and + hypoactive bowel sounds; abdomen not distended Percussion/Palpation: + abdomen tender (LLQ , lateral left lower abdomen), + guarding (voluntary on deep palpation) and abdomen soft; abdomen not rigid Skin: no rashes, warm and dry Psychiatric: Orientation: alert and oriented x 3 Results & Data ([facility]) Vital Signs (Past 12 Hours) Vital Signs Temp Pulse Resp BP Pulse Ox 09/12/20 07:10 36.8 C 91 H 16 101/65 97 Laboratory Results 09/12/20 09/11/20 09/11/20 Range/Units 06:09 17:42 17:42 WBC 13.87 H (4.8-10.8) K/uL RBC 4.89 (4.7-6.1) M/uL Hgb 15.2 (14.0-18.0) g/dL Hct 44.0 (42-52) % MCV 90.0 (80-100) fL MCH 31.1 (25-34) pg MCHC 34.5 (32-36) g/dL RDW Std Deviation 41.3 (36.4-46.3) fL RDW Coeff of Timo 12.5 (11.5-14.5) % Plt Count 199 (130-400) K/uL MPV 11.9 H (7.4-10.4) fL Immature Gran % (Auto) 0.2 % Neut % (Auto) 83.1 % Lymph % (Auto) 7.6 % [place] % (Auto) 8.5 % Eos % (Auto) 0.5 % Baso % (Auto) 0.1 % Neut # (Auto) 11.51 H (1.4-6.5) K/uL Lymph # (Auto) 1.06 L (1.2-3.4) K/uL [place] # (Auto) 1.18 H (0.11-0.59) K/uL Eos # (Auto) 0.07 (0-0.5) K/uL Baso # (Auto) 0.02 (0-0.2) K/uL Immature Gran # (Auto) 0.03 H (0.00-0.02) K/uL Sodium (136-145) mmol/L Potassium (3.5-5.1) mmol/L Chloride (98-107) mmol/L Carbon Dioxide (21-32) mmol/L Anion Gap (3-11) BUN (7-18) mg/dl Creatinine (0.6-1.4) mg/dl Est Cr Clr Drug Dosing ml/min Est GFR ( Amer) ml/min Est GFR (Non-Af Amer) ml/min BUN/Creatinine Ratio (10-20) Glucose (70-99) mg/dl Calcium (8.5-10.1) mg/dl Total Bilirubin (0.2-1) mg/dl AST (15-37) U/L ALT (12-78) U/L Alkaline Phosphatase (45-117) U/L Total Protein (6.4-8.2) gm/dl Albumin (3.4-5.0) gm/dl Globulin (2.5-4.0) gm/dl Albumin/Globulin Ratio (0.9-2) Lipase (73-393) U/L Urine Color Urine Appearance (Clear) Urine pH (4.5-7.5) Ur Specific [place] (1.000-1.030) Urine Protein (Negative) Urine Glucose (UA) (Negative) Urine Ketones (Negative) Urine Blood (Negative) Urine Nitrite (Negative) Urine Bilirubin (Negative) Urine Urobilinogen (Negative) Ur Leukocyte Esterase (Negative) Urine WBC (Auto) (0-5) /hpf Urine RBC (Auto) (0-4) /hpf U Hyaline Cast (Auto) (0-5) /lpf U Epithel Cells (Auto) (0-5) /lpf Urine Bacteria (Auto) (Negative) COVID-19 Eval Order Covid19 at [facility] SARS-CoV-2 (PCR) NEGATIVE (Negative) Monoscreen (Negative) 09/11/20 09/11/20 09/11/20 Range/Units 16:40 15:31 15:31 WBC (4.8-10.8) K/uL RBC (4.7-6.1) M/uL Hgb (14.0-18.0) g/dL Hct (42-52) % MCV (80-100) fL MCH (25-34) pg MCHC (32-36) g/dL RDW Std Deviation (36.4-46.3) fL RDW Coeff of Timo (11.5-14.5) % Plt Count (130-400) K/uL MPV (7.4-10.4) fL Immature Gran % (Auto) % Neut % (Auto) % Lymph % (Auto) % [place] % (Auto) % Eos % (Auto) % Baso % (Auto) % Neut # (Auto) (1.4-6.5) K/uL Lymph # (Auto) (1.2-3.4) K/uL [place] # (Auto) (0.11-0.59) K/uL Eos # (Auto) (0-0.5) K/uL Baso # (Auto) (0-0.2) K/uL Immature Gran # (Auto) (0.00-0.02) K/uL Sodium 136 (136-145) mmol/L Potassium 3.8 (3.5-5.1) mmol/L Chloride 104 (98-107) mmol/L Carbon Dioxide 28 (21-32) mmol/L Anion Gap 4.0 (3-11) BUN 11 (7-18) mg/dl Creatinine 1.06 (0.6-1.4) mg/dl Est Cr Clr Drug Dosing 151.5 ml/min Est GFR ( Amer) 114.1 ml/min Est GFR (Non-Af Amer) 98.4 ml/min BUN/Creatinine Ratio 10.5 (10-20) Glucose 134 H (70-99) mg/dl Calcium 9.1 (8.5-10.1) mg/dl Total Bilirubin 1.1 H (0.2-1) mg/dl AST 14 L (15-37) U/L ALT 38 (12-78) U/L Alkaline Phosphatase 65 (45-117) U/L Total Protein 8.4 H (6.4-8.2) gm/dl Albumin 4.4 (3.4-5.0) gm/dl Globulin 4.0 (2.5-4.0) gm/dl Albumin/Globulin Ratio 1.1 (0.9-2) Lipase 56 L (73-393) U/L Urine Color Yellow Urine Appearance Clear (Clear) Urine pH 6.0 (4.5-7.5) Ur Specific Candia 1.017 (1.000-1.030) Urine Protein Negative (Negative) Urine Glucose (UA) Negative (Negative) Urine Ketones Trace H (Negative) Urine Blood Trace H (Negative) Urine Nitrite Negative (Negative) Urine Bilirubin Negative (Negative) Urine Urobilinogen Negative (Negative) Ur Leukocyte Esterase Negative (Negative) Urine WBC (Auto) 1-5 (0-5) /hpf Urine RBC (Auto) 0-4 (0-4) /hpf U Hyaline Cast (Auto) 1-5 (0-5) /lpf U Epithel Cells (Auto) 0-5 (0-5) /lpf Urine Bacteria (Auto) Negative (Negative) COVID-19 Eval Order SARS-CoV-2 (PCR) (Negative) Monoscreen Negative (Negative) 09/11/20 Range/Units 15:31 WBC 12.80 H (4.8-10.8) K/uL RBC 5.20 (4.7-6.1) M/uL Hgb 16.3 (14.0-18.0) g/dL Hct 46.7 (42-52) % MCV 89.8 (80-100) fL MCH 31.3 (25-34) pg MCHC 34.9 (32-36) g/dL RDW Std Deviation 41.1 (36.4-46.3) fL RDW Coeff of Timo 12.5 (11.5-14.5) % Plt Count 193 (130-400) K/uL MPV 12.1 H (7.4-10.4) fL Immature Gran % (Auto) 0.2 % Neut % (Auto) 85.9 % Lymph % (Auto) 6.1 % [place] % (Auto) 7.2 % Eos % (Auto) 0.5 % Baso % (Auto) 0.1 % Neut # (Auto) 11.01 H (1.4-6.5) K/uL Lymph # (Auto) 0.78 L (1.2-3.4) K/uL [place] # (Auto) 0.92 H (0.11-0.59) K/uL Eos # (Auto) 0.06 (0-0.5) K/uL Baso # (Auto) 0.01 (0-0.2) K/uL Immature Gran # (Auto) 0.02 (0.00-0.02) K/uL Sodium (136-145) mmol/L Potassium (3.5-5.1) mmol/L Chloride (98-107) mmol/L Carbon Dioxide (21-32) mmol/L Anion Gap (3-11) BUN (7-18) mg/dl Creatinine (0.6-1.4) mg/dl Est Cr Clr Drug Dosing ml/min Est GFR ( Amer) ml/min Est GFR (Non-Af Amer) ml/min BUN/Creatinine Ratio (10-20) Glucose (70-99) mg/dl Calcium (8.5-10.1) mg/dl Total Bilirubin (0.2-1) mg/dl AST (15-37) U/L ALT (12-78) U/L Alkaline Phosphatase (45-117) U/L Total Protein (6.4-8.2) gm/dl Albumin (3.4-5.0) gm/dl Globulin (2.5-4.0) gm/dl Albumin/Globulin Ratio (0.9-2) Lipase (73-393) U/L Urine Color Urine Appearance (Clear) Urine pH (4.5-7.5) Ur Specific Candia (1.000-1.030) Urine Protein (Negative) Urine Glucose (UA) (Negative) Urine Ketones (Negative) Urine Blood (Negative) Urine Nitrite (Negative) Urine Bilirubin (Negative) Urine Urobilinogen (Negative) Ur Leukocyte Esterase (Negative) Urine WBC (Auto) (0-5) /hpf Urine RBC (Auto) (0-4) /hpf U Hyaline Cast (Auto) (0-5) /lpf U Epithel Cells (Auto) (0-5) /lpf Urine Bacteria (Auto) (Negative) COVID-19 Eval Order SARS-CoV-2 (PCR) (Negative) Monoscreen (Negative)
[2020-09-12] MEDS: AMPICILLIN/SULBACTAM SOD 1,500 MG in 0.9 % SODIUM CHLORIDE 100 ML IV SCH ×2 (13:32→18:09)
[2020-09-12] MEDS: ACETAMINOPHEN 1,000 MG/100 ML VIAL IV PRN (17:45)
--- NOTE | 2020-09-12 19:27 | Billing Data ---
Date of Service September 12, 2020 Coding Level of Care Code 80952 Subseq Hosp Care Lvl 3
[2020-09-13] MEDS: AMPICILLIN/SULBACTAM SOD 1,500 MG in 0.9 % SODIUM CHLORIDE 100 ML IV SCH ×4 (00:14→18:18)
[2020-09-13] MEDS: MoRPHine SULFATE 2 MG/ML CARP IV PRN ×2 (00:22→09:12)
[2020-09-13] MEDS: ACETAMINOPHEN 1,000 MG/100 ML VIAL IV PRN ×3 (02:15→18:55)
[2020-09-13 07:34] LABS: Mean Corpuscular Hemoglobin 31.2 pg (25-34); Mean Corpuscular Volume 89.1 fL (80-100); Mean Platelet Volume 11.6 fL (7.4-10.4); Platelet Count 164 K/uL (130-400); RDW Coefficient of Variation 12.2 % (11.5-14.5); RDW Standard Deviation 39.3 fL (36.4-46.3); Red Blood Count 4.49 M/uL (4.7-6.1); White Blood Count 13.47 K/uL (4.8-10.8)
[2020-09-13 08:01] LABS: BUN Creatinine Ratio 8.6 (10-20); Calcium 8.8 mg/dl (8.5-10.1); Creatinine Clr Calc Pharmacy 192.1 ml/min; Est GFR (Non-African American) 123.4 ml/min; Potassium 3.7 mmol/L (3.5-5.1)
--- NOTE | 2020-09-13 09:37 | Medical Student Progress Note ---
Date of Service September 13, 2020 Assessment & Plan (1) Diverticulitis large intestine: Plan: Jose is an otherwise healthy 25 yo male who presented for left lower quadrant pain, found to have acute diverticulitis in the mid-descending colon with a contained microperforation. He is hemodynamically stable and his pain is well controlled controlled. - patient without any apparent risk factors - continue with Unasyn 1500 mg IV q6h; transition to oral Cipro+Flagyl regimen upon discharge - general surgery consult appreciated: no need for surgery unless he worsens, will follow-up with patient, agreed with the recommendations above - tolerated clear liquids yesterday evening, advance to full liquids for lunch and low fiber diet for dinner if tolerates lunch - IV tylenol and IV morphine ordered prn for analgesia - maintenance IVF for hydration - considering outpatient GI referral as patient may need a colonoscopy after acute flare resolves (2) Leukocytosis: Plan: - WBC downtrending from 13.87 (8/4) to 13.47 currently, with neutrophil predom - likely secondary to acute diverticulitis as above - continue with IV Unasyn - trend CBC DVT ppx: low risk, ambulatory. SCDs Diet: clear liquids, advance as tolerated. * patient with peanut allergy Dispo: Med/Surg Code: Full Admission and Anticipated Discharge Date Admission Date: September 11, 2020 Supervising Attestation I personally examined the patient and verified all cai points of history and exam, discussed case, and agree with decision making with Rodney Smiley MS4 Still having some pain, was able to eat full liquids okay. didn't like the cream of wheat. pain is better though. Vitals noted, in general he is awake and alert pleasant no distress. HEENT normocephalic atraumatic mucous membranes moist. Abdomen soft left lower quadrant tenderness no guarding rebound or rigidity. better than yesterday Diverticulitis with microperforation causing probable localized peritonitisclinicallyimproving on IV antibiotics. Continue coverage for enteric gram-negative's and anaerobes. advance diet, continue IV abx until clearly more clinically improved. Otherwise as above. Subjective Overall, patient appears to be doing well. Pain has improved since yesterday, currently rated at a 2/10. He was able to tolerate clear liquid diet yesterday evening without incident. Review of Systems Eyes: as per Subjective / HPI Respiratory: as per Subjective / HPI Cardiovascular: as per Subjective / HPI Gastrointestinal: as per Subjective / HPI Genitourinary: + as per Subjective / HPI Musculoskeletal: as per Subjective / HPI Neurologic: as per Subjective / HPI Psychiatric: as per Subjective / HPI Endocrine: as per Subjective / HPI Physical Exam Constitutional: WD/WN, vitals as above cooperative; no acute distress Neck: trachea midline, no thyromegaly trachea midline Respiratory: normal respiratory effort, lungs clear to auscultation no cough Cardiovascular: RRR, no murmur, no edema Heart Sounds: normal S1 and normal S2 Extremities: no pedal edema Gastrointestinal (Abdomen): Inspection/Auscultation: abdomen normal to inspection and normal bowel sounds; abdomen not distended Percussion/Palpation: + abdomen tender (LLQ) and abdomen soft; no guarding Musculoskeletal: Head/Neck/Chest: normocephalic and head atraumatic Skin: no rashes, warm and dry Psychiatric: Affect: euthymic affect Results & Data ([facility]) Vital Signs (Past 12 Hours) Vital Signs Temp Pulse Resp BP Pulse Ox 09/13/20 06:22 36.6 C 87 17 136/76 97 09/12/20 22:30 36.8 C 87 18 134/82 98 Laboratory Results Laboratory Results WBC 13.47 K/uL (4.8-10.8) H 09/13/20 07:17 RBC 4.49 M/uL (4.7-6.1) L 09/13/20 07:17 Hgb 14.0 g/dL (14.0-18.0) 09/13/20 07:17 Hct 40.0 % (42-52) L 09/13/20 07:17 MCV 89.1 fL (80-100) 09/13/20 07:17 MCH 31.2 pg (25-34) 09/13/20 07:17 MCHC 35.0 g/dL (32-36) 09/13/20 07:17 RDW Std Deviation 39.3 fL (36.4-46.3) 09/13/20 07:17 RDW Coeff of Timo 12.2 % (11.5-14.5) 09/13/20 07:17 Plt Count 164 K/uL (130-400) 09/13/20 07:17 MPV 11.6 fL (7.4-10.4) H 09/13/20 07:17 Immature Gran % (Auto) 0.2 % 09/12/20 06:09 Neut % (Auto) 83.1 % 09/12/20 06:09 Lymph % (Auto) 7.6 % 09/12/20 06:09 [place] % (Auto) 8.5 % 09/12/20 06:09 Eos % (Auto) 0.5 % 09/12/20 06:09 Baso % (Auto) 0.1 % 09/12/20 06:09 Neut # (Auto) 11.51 K/uL (1.4-6.5) H 09/12/20 06:09 Lymph # (Auto) 1.06 K/uL (1.2-3.4) L 09/12/20 06:09 [place] # (Auto) 1.18 K/uL (0.11-0.59) H 09/12/20 06:09 Eos # (Auto) 0.07 K/uL (0-0.5) 09/12/20 06:09 Baso # (Auto) 0.02 K/uL (0-0.2) 09/12/20 06:09 Immature Gran # (Auto) 0.03 K/uL (0.00-0.02) H 09/12/20 06:09 Sodium 136 mmol/L (136-145) 09/13/20 07:17 Potassium 3.7 mmol/L (3.5-5.1) 09/13/20 07:17 Chloride 105 mmol/L (98-107) 09/13/20 07:17 Carbon Dioxide 25 mmol/L (21-32) 09/13/20 07:17 Anion Gap 6.0 (3-11) 09/13/20 07:17 BUN 7 mg/dl (7-18) 09/13/20 07:17 Creatinine 0.84 mg/dl (0.6-1.4) 09/13/20 07:17 Est Cr Clr Drug Dosing 192.1 ml/min 09/13/20 07:17 Est GFR ( Amer) 143.0 ml/min 09/13/20 07:17 Est GFR (Non-Af Amer) 123.4 ml/min 09/13/20 07:17 BUN/Creatinine Ratio 8.6 (10-20) L 09/13/20 07:17 Glucose 93 mg/dl (70-99) 09/13/20 07:17 Calcium 8.8 mg/dl (8.5-10.1) 09/13/20 07:17 Total Bilirubin 1.1 mg/dl (0.2-1) H 09/11/20 15:31 AST 14 U/L (15-37) L 09/11/20 15:31 ALT 38 U/L (12-78) 09/11/20 15:31 Alkaline Phosphatase 65 U/L (45-117) 09/11/20 15:31 Total Protein 8.4 gm/dl (6.4-8.2) H 09/11/20 15:31 Albumin 4.4 gm/dl (3.4-5.0) 09/11/20 15:31 Globulin 4.0 gm/dl (2.5-4.0) 09/11/20 15:31 Albumin/Globulin Ratio 1.1 (0.9-2) 09/11/20 15:31 Lipase 56 U/L (73-393) L 09/11/20 15:31 Urine Color Yellow 09/11/20 16:40 Urine Appearance Clear (Clear) 09/11/20 16:40 Urine pH 6.0 (4.5-7.5) 09/11/20 16:40 Ur Specific [place] 1.017 (1.000-1.030) 09/11/20 16:40 Urine Protein Negative (Negative) 09/11/20 16:40 Urine Glucose (UA) Negative (Negative) 09/11/20 16:40 Urine Ketones Trace (Negative) H 09/11/20 16:40 Urine Blood Trace (Negative) H 09/11/20 16:40 Urine Nitrite Negative (Negative) 09/11/20 16:40 Urine Bilirubin Negative (Negative) 09/11/20 16:40 Urine Urobilinogen Negative (Negative) 09/11/20 16:40 Ur Leukocyte Esterase Negative (Negative) 09/11/20 16:40 Urine WBC (Auto) 1-5 /hpf (0-5) 09/11/20 16:40 Urine RBC (Auto) 0-4 /hpf (0-4) 09/11/20 16:40 U Hyaline Cast (Auto) 1-5 /lpf (0-5) 09/11/20 16:40 U Epithel Cells (Auto) 0-5 /lpf (0-5) 09/11/20 16:40 Urine Bacteria (Auto) Negative (Negative) 09/11/20 16:40 COVID-19 Eval Order Covid19 at [facility] 09/11/20 17:42 SARS-CoV-2 (PCR) NEGATIVE (Negative) 09/11/20 17:42 Monoscreen Negative (Negative) 09/11/20 15:31 Impressions Abdomen/Pelvis CT 09/11/20 14:26 CT OF THE ABDOMEN AND PELVIS WITH CONTRAST CLINICAL HISTORY: LLQ abd pain COMPARISON STUDY: Left lower quadrant abdominal pain. TECHNIQUE: Following IV administration of 91 mL of Optiray, axial images of the abdomen and pelvis were obtained from the lung bases to the proximal femurs. Images were reviewed in the axial, sagittal, and coronal planes. IV contrast was administered without complication. Automated exposure control was utilized for the study. A dose lowering technique was utilized adhering to the principles of ALARA. Oral contrast was administered. CT DOSE: 721.76 mGy.cm FINDINGS: Lung bases are unremarkable. No pneumatosis or portal venous gas is present. The liver, spleen, adrenal glands, kidneys and pancreas are unremarkable. There is no biliary or pancreatic ductal dilatation. There is no hydronephrosis. Colonic diverticulosis is noted. Note is made of an inflamed diverticulum of the posterior wall of the mid descending colon. There are multiple adjacent locules of extraluminal gas. Moderate adjacent fluid is noted. There is no rim-enhancing fluid collection to suggest an abscess. The appendix is normal. There is no evidence for a bowel obstruction. There is no lymphadenopathy. Major vasculature is patent. IMPRESSION: Findings consistent with acute diverticulitis of the mid descending colon with contained perforation. Small amount of extraluminal gas with moderate pericolonic fluid. No abscess. ACT 112: Negative or not required by law. Electronically signed by: Reynaldo Nunez M.D. 09/11/2020 5:01 PM Medications Administered Current Inpatient Medications Epinephrine HCl (Epinephrine Inj 1 Mg/Ml Amp) 0.3 mg IM ONCE PRN PRN Reason: Allergic Reaction Stop: 10/11/20 22:45 Acetaminophen (Ofirmev) 1,000 mg in 100 mls @ 400 mls/hr IV Q8H PRN PRN Reason: Pain Stop: 09/14/20 22:36 Last Infusion: 09/13/20 03:41 Dose: Infused Documented by: Ampicillin Sodium/Sulbactam Sodium 1,500 mg/ Sodium Chloride 104 mls @ 200 mls/hr IV Q6H [facility]; Protocol Stop: 09/22/20 12:59 Last Infusion: 09/13/20 07:02 Dose: Infused Documented by: Morphine Sulfate (Morphine Sulfate 2 Mg/Ml Carp) 1 mg IV Q30M PRN PRN Reason: Chest Pain Stop: 09/25/20 22:36 Last Admin: 09/13/20 09:12 Dose: 1 mg Documented by: Ondansetron HCl (Ondansetron Inj 2 Mg/Ml 2 Ml Vial) 4 mg IV Q6H PRN PRN Reason: Nausea Stop: 10/11/20 22:36
--- NOTE | 2020-09-13 11:00 | Surgery Progress Note ---
Date of Service September 13, 2020 Assessment & Plan (1) Diverticulitis large intestine: Plan: 25 year-old male who presented to ER with 2 days history LLQ pain, CT scan showing diverticulitis of distal sigmoid colon with contained perforation and no abscess Plan: No acute surgical intervention required at this time continue conservative measures. Continue clear liquids, advised to go slowly. Continue IV abx and IV fluids until taking PO well. Continue pain management as needed Continue IV Zofan prn nausea encouraged ambulating hallway Will need colonoscopy in 6-8 weeks once acute inflammation resolved total course of 10-14 days of antibiotics given microperforation repeat am cbc Dr. Vasquez has seen patient and agrees with above. Admission and Anticipated Discharge Date Admission Date: September 11, 2020 Subjective feeling a little better, pain is about 3/10. Tolerated clear liquids for dinner last night. Had liquid bowel movement after. No blood in stool. Not passing much gas. Pain increases with getting out of bed and walking but otherwise feels a little better. No nausea or vomiting no fevers or chills Physical Exam Constitutional: WD/WN, vitals as above no acute distress and not ill appearing Gastrointestinal (Abdomen): Inspection/Auscultation: abdomen normal to inspection and normal bowel sounds; abdomen not distended Percussion/Palpation: + abdomen tender (Left lateral abdomen) and abdomen soft; no guarding and abdomen not rigid Skin: no rashes, warm and dry Psychiatric: Orientation: alert and oriented x 3 Results & Data ([facility]) Vital Signs (Past 12 Hours) Vital Signs Temp Pulse Resp BP Pulse Ox 09/13/20 06:22 36.6 C 87 17 136/76 97 Laboratory Results 09/13/20 09/13/20 Range/Units 07:17 07:17 WBC 13.47 H (4.8-10.8) K/uL RBC 4.49 L (4.7-6.1) M/uL Hgb 14.0 (14.0-18.0) g/dL Hct 40.0 L (42-52) % MCV 89.1 (80-100) fL MCH 31.2 (25-34) pg MCHC 35.0 (32-36) g/dL RDW Std Deviation 39.3 (36.4-46.3) fL RDW Coeff of Timo 12.2 (11.5-14.5) % Plt Count 164 (130-400) K/uL MPV 11.6 H (7.4-10.4) fL Sodium 136 (136-145) mmol/L Potassium 3.7 (3.5-5.1) mmol/L Chloride 105 (98-107) mmol/L Carbon Dioxide 25 (21-32) mmol/L Anion Gap 6.0 (3-11) BUN 7 (7-18) mg/dl Creatinine 0.84 (0.6-1.4) mg/dl Est Cr Clr Drug Dosing 192.1 ml/min Est GFR ( Amer) 143.0 ml/min Est GFR (Non-Af Amer) 123.4 ml/min BUN/Creatinine Ratio 8.6 L (10-20) Glucose 93 (70-99) mg/dl Calcium 8.8 (8.5-10.1) mg/dl
--- NOTE | 2020-09-13 18:24 | Billing Data ---
Date of Service September 13, 2020 Coding Level of Care Code 66197 Subseq Hosp Care Lvl 3
[2020-09-14] MEDS: AMPICILLIN/SULBACTAM SOD 1,500 MG in 0.9 % SODIUM CHLORIDE 100 ML IV SCH ×3 (00:49→12:57)
[2020-09-14] MEDS: MoRPHine SULFATE 2 MG/ML CARP IV PRN (00:56)
[2020-09-14] MEDS: ACETAMINOPHEN 1,000 MG/100 ML VIAL IV PRN (03:33)
[2020-09-14 05:49] LABS: Hematocrit (blood only) 40.2 % (42-52); Hemoglobin 14.3 g/dL (14.0-18.0); Mean Corpuscular Hemoglobin 31.8 pg (25-34); Mean Corpuscular Hgb Conc 35.6 g/dL (32-36); Mean Corpuscular Volume 89.5 fL (80-100); Mean Platelet Volume 11.7 fL (7.4-10.4); Platelet Count 211 K/uL (130-400); RDW Coefficient of Variation 12.3 % (11.5-14.5); RDW Standard Deviation 40.2 fL (36.4-46.3); Red Blood Count 4.49 M/uL (4.7-6.1)
[2020-09-14 06:27] LABS: BUN Creatinine Ratio 9.7 (10-20); Calcium 9.4 mg/dl (8.5-10.1); Creatinine Clr Calc Pharmacy 179.3 ml/min; Potassium 3.5 mmol/L (3.5-5.1)
--- NOTE | 2020-09-14 10:24 | Surgery Progress Note ---
Date of Service September 14, 2020 Assessment & Plan (1) Diverticulitis large intestine: Plan: 25 year-old male who presented to ER with 2 days history LLQ pain, CT scan showing diverticulitis of distal sigmoid colon with contained perforation and no abscess Plan: No surgical intervention required at this time okay from surgical standpoint for discharge Transition to oral antibiotics for total course of IV and abx for 14 days recommended. Will need colonoscopy in 6-8 weeks once acute inflammation resolved Can follow with Dr. Vasquez in surgical office in 2-[address] weeks or as needed Dr[address] Vasquez has seen patient and agrees with above. Admission and Anticipated Discharge Date Admission Date: September 11, 2020 Subjective feeling better today pain improved no n/v tolerated low fiber diet Physical Exam Constitutional: WD/WN, vitals as above Gastrointestinal (Abdomen): Inspection/Auscultation: abdomen normal to inspection; abdomen not distended Percussion/Palpation: + abdomen tender (LLQ but improved) and abdomen soft; no guarding and abdomen not rigid Skin: no rashes, warm and dry Psychiatric: A+Ox3, euthymic affect Results & Data ([facility]) Vital Signs (Past 12 Hours) Vital Signs Temp Pulse Resp BP BP Pulse Ox 09/14/20 07:49 36.5 C 82 16 138/81 99 09/13/20 22:50 36.8 C 94 H 16 133/77 97 Laboratory Results 09/14/20 09/14/20 Range/Units 05:29 05:29 WBC 11.80 H (4.8-10.8) K/uL RBC 4.49 L (4.7-6.1) M/uL Hgb 14.3 (14.0-18.0) g/dL Hct 40.2 L (42-52) % MCV 89.5 (80-100) fL MCH 31.8 (25-34) pg MCHC 35.6 (32-36) g/dL RDW Std Deviation 40.2 (36.4-46.3) fL RDW Coeff of Timo 12.3 (11.5-14.5) % Plt Count 211 (130-400) K/uL MPV 11.7 H (7.4-10.4) fL Sodium 135 L (136-145) mmol/L Potassium 3.5 (3.5-5.1) mmol/L Chloride 103 (98-107) mmol/L Carbon Dioxide 25 (21-32) mmol/L Anion Gap 7.0 (3-11) BUN 9 (7-18) mg/dl Creatinine 0.90 (0.6-1.4) mg/dl Est Cr Clr Drug Dosing 179.3 ml/min Est GFR ( Amer) 139.0 ml/min Est GFR (Non-Af Amer) 120.0 ml/min BUN/Creatinine Ratio 9.7 L (10-20) Glucose 96 (70-99) mg/dl Calcium 9.4 (8.5-10.1) mg/dl
--- NOTE | 2020-09-14 11:23 | Discharge Summary ---
Date of Service September 14, 2020 Admission HPI Per Admitting Provider Jose is a 25 yo otherwise healthy male who was referred to the [facility] ED by a local [facility] clinic, where he presented earlier today with left abdominal pain. The pain began Thursday evening - it was mostly localized to the left lower quadrant. He denied any associated fever/chills, cough, runny nose, SOB, nausea/vomiting or diarrhea. He states his appetite has been low. He has passed normal BMs. The discomfort has slightly progressed since onset, which ultimatley prompted him to seek medical attention today. He denies any personal or family history of gastrointestinal problems. Social Hx: He smokes marijuana occasionally, social consumption of etoh (not regular). In the ED, he was afebrile with normal HR and BP. His WBC was elevated to 12.8 with neutrophil predominance. CMP was normal. UA was benign. Monospot negative. COVID [address] scan of the abdomen/pelvis showed evidence of acute diverticulitis of the mid descending colon with contained perforation. No abscess formation. He was given Morphine 4mg, zofran 4mg, a dose of Zosyn and 1 liter of NSS. Admission Exam Per Admitting Provider Constitutional: WD/WN, vitals as above cooperative; no acute distress Eyes: + anicteric sclerae ENMT: external ear and nose normal, oropharynx normal Neck: trachea midline Respiratory: normal respiratory effort, lungs clear to auscultation no cough Cardiovascular: RRR, no murmur, no edema Heart Sounds: normal S1 and normal S2 Extremities: no pedal edema Gastrointestinal (Abdomen): Inspection/Auscultation: abdomen normal to inspection and normal bowel sounds; abdomen not distended Percussion/Palpation: + abdomen tender (LLQ, LUQ, suprapubic area) and abdomen soft; no guarding and no hepatosplenomegaly Musculoskeletal: Head/Neck/Chest: normocephalic and head atraumatic Skin: no rashes, warm and dry Psychiatric: A+Ox3, euthymic affect Principal Diagnosis Acute diverticulitis with microperforation Discharge Exam Constitutional WD/WN, vitals as above cooperative; no acute distress Eyes + anicteric sclerae ENMT external ear and nose normal, oropharynx normal Neck trachea midline Respiratory normal respiratory effort, lungs clear to auscultation no cough Cardiovascular RRR, no murmur, no edema Heart Sounds: normal S1 and normal S2 Extremities: no pedal edema Gastrointestinal (Abdomen) Inspection/Auscultation: abdomen normal to inspection and normal bowel sounds; abdomen not distended Percussion/Palpation: + abdomen tender (Very minor LLQ) and abdomen soft; no guarding and no hepatosplenomegaly Musculoskeletal Head/Neck/Chest: normocephalic and head atraumatic Skin no rashes, warm and dry Psychiatric A+Ox3, euthymic affect Discharge Data Allergies Allergy/AdvReac Type Severity Reaction Status Date / Time peanut Allergy Severe Anaphylaxis Verified 09/11/20 14:56 Sulfa (Sulfonamide Allergy Intermediate Hives Verified 09/11/20 14:56 Antibiotics) argan nut Allergy Verified 09/13/20 13:13 [place] nut Allergy Verified 09/13/20 13:13 cashew nut Allergy Verified 09/13/20 13:13 macadamia nut oil Allergy Verified 09/13/20 13:13 nut - unspecified Allergy Verified 09/13/20 13:13 pecan nut Allergy Verified 09/13/20 13:13 pine nut Allergy Verified 09/13/20 13:13 pistachio nut Allergy Verified 09/13/20 13:13 tree nut Allergy Verified 09/13/20 13:13 walnut Allergy Verified 09/13/20 13:13 Consultations 09/11/20 18:06 ED Decision to Admit Stat 09/11/20 22:37 Consult General Surgery Routine Ordered Studies 09/11/20 14:26 CT abd pelvis oral and IV con Stat Hospital Course (1) Diverticulitis large intestine: 25 yo healthy M who presented with acute LLQ pain, CTAP found acute diverticulitis of mid-descending colon with contained microperforation. Pt treated with Zosyn in ED, later switched to Unasyn and discharged on oral Cipro/Flagyl. Surgery consult recommended non-operative management with abx. Pt's pain improved with abx therapy, PRNs for pain control, IVF. Remained hemodynamically stable. Tolerating solids well by day of discharge, normal bowel function. Discharged home with 10 day course of Cipro/Flagyl to complete remaining antibiotic treatment outpatient. Pt would likely benefit from colonoscopy after resolution of diverticulitis. To be discussed at clinic follow-up. (2) Leukocytosis: Total Time Total Time Spent Total Time Spent (In Minutes): 30 Discharge Plan Discharge Items Patient Disposition: Home - Self-Care Reason For Visit: DIVERTICULITIS WITH PERFORATION Discharge Diagnosis: Acute diverticulitis Activity: Per Instructions section Non-emergency contact: Primary Care Provider Call non-emergency contact if: you have any medication questions, your symptoms worsen, your pain is not controlled, your pain is worsening, your pain is concerning for you and you have a fever Follow-up/Referrals: [facility] [Primary Care Provider] - (Please call [facility] to schedule a follow up appt) Madelyn Vasquez MD [Physician] - 10/08/20 9:30 am () Alberto Astudillo MD [Resident] - (You must have [facility] schedule your follow up appt with Dr. Astudillo.) Diet: Low Fiber Addtl Attending Provider Instructions: You were admitted to the hospital for acute diverticulitis with microperforation. Diverticulitis -You were admitted to the hospital for diverticulitis, which refers to inflammation of the large intestine. This was the cause of your abdominal pain, as well as any nausea or decreased appetite. Your colon had small bulging pouches which became infected by the bacteria that normally reside in your gastrointestinal tract. You were then treated with antibiotics and fluids, as well as gradual advancement of your diet from clear liquids to solids as you were able to eat without pain. Diverticulitis is less common in young healthy people, so it would be helpful to obtain a colonoscopy to examine your colon for any kind of abnormality. You will also continue your antibiotics as an outpatient. While you can return to eating a regular diet, it may help to eat less high-fiber foods until your abdominal pain is completely resolved. A discharge summary will be sent to your primary care physician to ensure continuity of care. Please bring this discharge summary with you to your next office appointment so that your provider can review it at that time. Follow-up appointments: You will follow up with Dr. Alberto Astudillo MD at the [facility] next to the hospital on 09/20 at 3:50 PM. Medications: Your medication list has been reviewed and reconciled upon discharge to ensure accuracy and continuity of care. An updated list of all your medications is included with your hospital discharge paperwork. Please review this list closely, and make note of any changes. We sent new medications to [facility] on [address]- Ciprofloxacin 500 mg twice a day and Flagyl 500 mg twice a day. This will treat the remainder of your diverticulitis. Take your medications as instructed; do not skip a dose of your medicines. Make sure all of your doctors know every medicine you are taking (including [id number] medicines, vitamins, and supplements). Call your primary care provider before taking any new medicines (including [id number] medicines, vitamins, and supplements), because some of these may interact with your current medications, or may make your symptoms worse. Tell your primary care provider if you cannot afford your medications. CONTACT YOUR PRIMARY CARE PROVIDER if you experience any of the following: Fever Abdominal pain Decreased appetite Nausea/vomiting Diarrhea Constipation Difficulty following your treatment plan, or difficulty taking medications CALL 911 OR GO TO THE EMERGENCY DEPARTMENT if you experience any of the following: Sudden, severe abdominal pain or nausea/vomiting Severe chest pain, or chest pain that radiates (moves) to your jaw or arm Sudden, severe shortness of breath or difficulty breathing Thank you for allowing us to participate in your care. Pending Studies at Discharge: No Stand-Alone Forms: My [facility] [place], Smoking Cessation Medications and DC Order Prescriptions: New ciprofloxacin HCl 500 mg tablet 500 mg PO BID Qty: 20 RF: 0 metronidazole [Flagyl] 500 mg tablet 500 mg PO BID 10 Days Qty: 20 RF: 0 Continued epinephrine 0.3 mg/0.3 mL auto-injector 0.3 ml IM ONCE PRN (Reason: Allergic Reaction) RF: 0 Discharge Orders: Discharge Order (Routine); Ordered 09/14/20 Ordered By: Alberto Kang/Other Patient Handouts: Diverticulosis Diverticulitis, Anatomy of the Digestive System, ED Diverticulitis Admission Data Admit Date/Time: 09/11/20 19:07 Attending Provider: Max Mccray Admit Provider: Sandrita Pabon Primary Care Provider: [place] Other Providers: Yamila Barth ; Endy Gill Other Interventions: Discharge Summary Assessment (RN) Last Done: 09/14/20 12:44 Supervising Physician Co-Signing Physician Notes I personally examined the patient and verified all cai points of history and exam, discussed case, and agree with decision making with Dr Astudillo Still pain but is improving. Eating betterwas able to tolerate regular food.. Vitals noted, in general he is awake and alert pleasant no distress. HEENT normocephalic atraumatic mucous membranes moist. Abdomen soft still has some left lower quadrant tenderness no guarding rebound or rigidity. But continues to improve. Able to palpate far more firmly without eliciting pain than previously Diverticulitis with microperforation causing probable localized peritonitisclinically improving on IV antibiotics, but now pain is clearly improving, tolerating p.o. wellnot septicappears quite safe for home. Finish out 14 days of antibiotics with Cipro and Flagyl. Follow-up in the office next week, ongoing follow-up until this is clearly resolved. Otherwise as above. Resident Activity Tracking Resident Involvement: Resident Care Provided Care Provided: Adult Hospital Medicine
--- NOTE | 2020-09-14 19:08 | Billing Data ---
Date of Service September 14, 2020 Coding Level of Care Code D/C DAY MANAGEMENT <30 MINS
== END 2020-09-14 13:56 | disposition home or self-care (01) | DRG 391 ==
LOC: ED 12:21 → 3N 19:07 → SUATTDRO 19:07 → 3N 22:12